=== PATIENT | female | born 1980 | race Caucasian/White ===

== ENCOUNTER 2019-01-16 19:09 | Emergency (ER) | payer BC ==
[2019-01-16 19:17] VITALS: TEMP 98.3
[2019-01-16] MEDS ORDERED: SODIUM CHLORIDE 0.9% 1,000 ML IV STA ×2 (19:41→20:29)
[2019-01-16 20:14] LABS: Basophils # (A) 0.1 k/uL (0-0.2); Basophils % (A) 1 %; Eosinophils # (A) 0.3 k/uL (0-0.7); Eosinophils % (A) 2 %; HCT 47.8 % (34.0-46.0); HGB 15.3 gm/dL (11.4-16.0); Lymphocytes # (A) 2.3 k/uL (1.0-4.8); Lymphocytes % (A) 16 %; MCH 29.2 pg (25.0-35.0); MCHC 32.1 g/dL (31.0-37.0); Mean Platelet Volume 6.8; Monocytes # (A) 0.4 k/uL (0-1.0); Monocytes % (A) 3 %; Neutrophils # (A) 10.6 k/uL (1.3-7.7); Neutrophils % (A) 77 %; Platelet Count 395 k/uL (150-450); RBC 5.25 m/uL (3.80-5.40); WBC 13.8 k/uL (3.8-10.6)
[2019-01-16 20:23] LABS: ALT 28 U/L (9-52); AST 36 U/L (14-36); Albumin 5.2 g/dL (3.5-5.0); Alcohol <10 mg/dL; Alkaline Phosphatase 74 U/L (38-126); Amylase 54 U/L (30-110); Anion Gap 15 mmol/L; Blood Urea Nitrogen 16 mg/dL (7-17); Calcium 10.5 mg/dL (8.4-10.2); Carbon Dioxide 20 mmol/L (22-30); Chloride 104 mmol/L (98-107); Creatine Kinase 59 U/L (30-135); Glucose 119 mg/dL (74-99); Lipase 71 U/L (23-300); Magnesium 1.7 mg/dL (1.6-2.3); Sodium 139 mmol/L (137-145); Total Bilirubin 0.7 mg/dL (0.2-1.3); Total Protein 8.4 g/dL (6.3-8.2)
[2019-01-16 20:27] LABS: Potassium 3.9 mmol/L (3.5-5.1)
--- NOTE | 2019-01-16 20:29 | ED ---
Neuro HPI - General Chief Complaint: Neuro Symptoms/Deficit Stated Complaint: face & hand tingling/dizziness Time Seen by Provider: 01/16/19 19:33 Source: patient, RN notes reviewed Mode of arrival: ambulatory Limitations: no limitations - History of Present Illness Is the patient presenting with stroke symptoms?: No Initial Comments: This is a 38-year-old female with no known history of neurological disorder who does have a family history with her mother with some autoimmune disease who states she had the onset 3 days ago of some right facial numbness around her left. He states he also had some numbness to the fourth and fifth fingers of both hands also with some tingling. She had some dizziness also with this. No focal weakness however to arms or legs no blurry vision no headache no dizziness nausea vomiting or other symptoms. She states she had episodes like this about a year ago she cut out sugar and it seemed to resolve. She does admit to drinking 25 and 7 days week 6-8 drinks a day. Last was so. She is currently on. She denies any trauma a known umbilical imbalances or any history of any diabetes or other symptoms or medical issues. - Related Data Home Medications: Home Medications Medication Instructions Recorded Confirmed Fluticasone Nasal [place] [Flonase 1 spr EA NOSTRIL DAILY PRN 01/16/19 01/16/19 Nasal [place]] Allergies/Adverse Reactions: Allergies Allergy/AdvReac Type Severity Reaction Status Date / Time No Known Allergies Allergy Verified 01/16/19 20:28 Review of Systems ROS Statement: Those systems with pertinent positive or pertinent negative responses have been documented in the HPI. ROS Other: All systems not noted in ROS Statement are negative. General Exam - General Exam Comments Initial Comments: This is a well-developed well-nourished awake alert oriented 3 female Limitations: no limitations General appearance: alert, in no apparent distress Head exam: Present: atraumatic, normocephalic, normal inspection Eye exam: Present: normal appearance, PERRL, EOMI. Absent: scleral icterus, conjunctival injection, periorbital swelling ENT exam: Present: normal exam, mucous membranes moist Neck exam: Present: normal inspection, full ROM, other (No stridor JVD or bruits). Absent: tenderness, meningismus, lymphadenopathy Respiratory exam: Present: normal lung sounds bilaterally. Absent: respiratory distress, wheezes, rales, rhonchi, stridor Cardiovascular Exam: Present: normal rhythm, tachycardia. Absent: systolic murmur, diastolic murmur, rubs, gallop, clicks GI/Abdominal exam: Present: soft, normal bowel sounds. Absent: distended, tenderness, guarding, rebound, rigid Extremities exam: Present: normal inspection, full ROM, normal capillary refill. Absent: tenderness, pedal edema, joint swelling, calf tenderness Back exam: Present: normal inspection Neurological exam: Present: alert, oriented X3, CN II-XII intact Psychiatric exam: Present: normal affect, normal mood Skin exam: Present: warm, dry, intact, normal color. Absent: rash Stroke MDM - Lab Data Result diagrams: 01/16/19 20:00 01/16/19 20:00 Lab Results 01/16/19 01/16/19 01/16/19 Range/Units 20:00 20:00 20:00 WBC 13.8 H (3.8-10.6) k/uL RBC 5.25 (3.80-5.40) m/uL Hgb 15.3 (11.4-16.0) gm/dL Hct 47.8 H (34.0-46.0) % MCV 91.0 (80.0-100.0) fL MCH 29.2 (25.0-35.0) pg MCHC 32.1 (31.0-37.0) g/dL RDW 13.0 (11.5-15.5) % Plt Count 395 (150-450) k/uL Neutrophils % 77 % Lymphocytes % 16 % Monocytes % 3 % Eosinophils % 2 % Basophils % 1 % Neutrophils # 10.6 H (1.3-7.7) k/uL Lymphocytes # 2.3 (1.0-4.8) k/uL Monocytes # 0.4 (0-1.0) k/uL Eosinophils # 0.3 (0-0.7) k/uL Basophils # 0.1 (0-0.2) k/uL PT 9.8 (9.0-12.0) sec INR 0.9 (<1.2) APTT 22.9 (22.0-30.0) sec Sodium 139 (137-145) mmol/L Potassium 3.9 (3.5-5.1) mmol/L Chloride 104 (98-107) mmol/L Carbon Dioxide 20 L (22-30) mmol/L Anion Gap 15 mmol/L BUN 16 (7-17) mg/dL Creatinine 0.66 (0.52-1.04) mg/dL Est GFR (CKD-EPI)AfAm >90 (>60 ml/min/1.73 sqM) Est GFR (CKD-EPI)NonAf >90 (>60 ml/min/1.73 sqM) Glucose 119 H (74-99) mg/dL Calcium 10.5 H (8.4-10.2) mg/dL Magnesium 1.7 (1.6-2.3) mg/dL Total Bilirubin 0.7 (0.2-1.3) mg/dL AST 36 (14-36) U/L ALT 28 (9-52) U/L Alkaline Phosphatase 74 (38-126) U/L Creatine Kinase 59 (30-135) U/L Troponin I (0.000-0.034) ng/mL Total Protein 8.4 H (6.3-8.2) g/dL Albumin 5.2 H (3.5-5.0) g/dL Amylase 54 (30-110) U/L Lipase 71 (23-300) U/L TSH 3.530 (0.465-4.680) mIU/L Serum Alcohol <10 mg/dL 01/16/19 Range/Units 20:00 WBC (3.8-10.6) k/uL RBC (3.80-5.40) m/uL Hgb (11.4-16.0) gm/dL Hct (34.0-46.0) % MCV (80.0-100.0) fL MCH (25.0-35.0) pg MCHC (31.0-37.0) g/dL RDW (11.5-15.5) % Plt Count (150-450) k/uL Neutrophils % % Lymphocytes % % Monocytes % % Eosinophils % % Basophils % % Neutrophils # (1.3-7.7) k/uL Lymphocytes # (1.0-4.8) k/uL Monocytes # (0-1.0) k/uL Eosinophils # (0-0.7) k/uL Basophils # (0-0.2) k/uL PT (9.0-12.0) sec INR (<1.2) APTT (22.0-30.0) sec Sodium (137-145) mmol/L Potassium (3.5-5.1) mmol/L Chloride (98-107) mmol/L Carbon Dioxide (22-30) mmol/L Anion Gap mmol/L BUN (7-17) mg/dL Creatinine (0.52-1.04) mg/dL Est GFR (CKD-EPI)AfAm (>60 ml/min/1.73 sqM) Est GFR (CKD-EPI)NonAf (>60 ml/min/1.73 sqM) Glucose (74-99) mg/dL Calcium (8.4-10.2) mg/dL Magnesium (1.6-2.3) mg/dL Total Bilirubin (0.2-1.3) mg/dL AST (14-36) U/L ALT (9-52) U/L Alkaline Phosphatase (38-126) U/L Creatine Kinase (30-135) U/L Troponin I <0.012 (0.000-0.034) ng/mL Total Protein (6.3-8.2) g/dL Albumin (3.5-5.0) g/dL Amylase (30-110) U/L Lipase (23-300) U/L TSH (0.465-4.680) mIU/L Serum Alcohol mg/dL - NIH Stroke Scale 1a. Level of Consciousness: (0) alert 1b. LOC Questions: (0) answers correctly 1c. LOC Commands: (0) performs tasks correctly 2. Best Gaze: (0) normal 3. Visual: (0) no visual loss 4. Facial Palsy: (0) normal symmetrical movement 5a. Motor Arm Left: (0) no drift 5b. Motor Arm Right: (0) no drift 6a. Motor Leg Left: (0) no drift 6b. Motor Leg Right: (0) no drift 7. Limb Ataxia: (0) absent 8. Sensory: (0) normal 9. Best Language: (0) no aphasia 10. Dysarthria: (0) normal 11. Extinction/Inattention: (0) no abnormality - Medical Decision Making I did review the imaging and reports no acute findings. The patient will be discharged I did recommend stopping alcohol consumption she does have borderline low magnesium potassium levels we did discuss foods and supplements for this. She is going to follow-up with her doctor and return when necessary - EKG Data -: EKG Interpreted by Me EKG shows normal: sinus rhythm Rate: normal (EKG shows sinus tachycardia rate of 112. Interval 142 QRS duration 76 QT since QTC 3:30/[address] configuration) Past Medical History Past Medical History: No Reported History History of Any Multi-Drug Resistant Organisms: None Reported Past Surgical History: No Surgical Hx Reported Past Psychological History: No Psychological Hx Reported Smoking Status: Never smoker Past Alcohol Use History: Abuse, Daily, Heavy Past Drug Use History: None Reported Course Vital Signs 01/16/19 19:13 Temperature 98.3 F Pulse Rate 121 H Respiratory 20 Rate Blood Pressure 196/108 O2 Sat by Pulse 99 Oximetry Disposition Clinical Impression: Paresthesia Disposition: HOME SELF-CARE Condition: Good Instructions (If sedation given, give patient instructions): Paresthesia (ED), Abuse of Alcohol (ED) Is patient prescribed a controlled substance at d/c from ED?: No Referrals: None,Stated [Primary Care Provider] - 1-2 days
[2019-01-16 20:36] LABS: INR 0.9 (<1.2); Partial Thromboplastin Time 22.9 sec (22.0-30.0); Prothrombin Time 9.8 sec (9.0-12.0)
--- NOTE | 2019-01-16 20:47 | CT ---
EXAMINATION TYPE: CT brain wo con DATE OF EXAM: 01/16/2019 COMPARISON: None HISTORY: 38-year-old female neurologic deficits, numbness and tingling in face TECHNIQUE: Examination was done in axial plane without intravenous contrast. Coronal and sagittal r econstructions performed. CT DLP: 1082.4 mGycm Automated exposure control for dose reduction was used. FINDINGS: There is no evidence of acute intracranial hemorrhage, acute ischemic changes, mass, mass-effect, or extra-axial fluid collection. There is no effacement of cerebral sulci or basal subarachnoid cister ns. There is no hydrocephalus. There is no midline shift. Gaspar-white matter distinction is preserv ed. Normal variant persistent CSP. Paranasal sinuses and mastoid air cells well pneumatized. Orbits and globes are intact. There is an 8 mm scalp nodule posteriorly on the right. IMPRESSION: No acute intracranial abnormality seen. 8 mm posterior scalp nodule on the right. Correlate with phys ical exam findings, possible sebaceous cyst.
--- NOTE | 2019-01-16 20:48 | XR ---
EXAMINATION TYPE: XR chest 2V DATE OF EXAM: 01/16/2019 COMPARISON: None HISTORY: 38 year-old female altered mental status, dizziness, tingling in fingers TECHNIQUE: PA and lateral views FINDINGS: The cardiomediastinal silhouette, aorta, and pulmonary vasculature are within normal limits. Mild juana tral peribronchial cuffing. Otherwise, lungs and pleural spaces are clear. IMPRESSION: Some central periportal cuffing could reflect bronchitis or asthma. Otherwise, no acute cardiopulmona ry process.
[2019-01-16 22:35] VITALS: BP 130/86; PULSE 80; RESP 19
== END 2019-01-16 22:50 | disposition home or self-care (01) ==
LOC: EC 19:09
DX: R20.2 Paresthesia of skin (principal); R42 Dizziness and giddiness; R20.0 Anesthesia of skin
CPT/HCPCS: 36415; 70450; 71046; 80053; 80320; 82150; 82550; 83690; 83735; 84443; 84484; 85025; 85610; 85730; 93005; 96360; 96361; 99284

== ENCOUNTER 2021-07-05 12:26 | Inpatient (IN) | payer BC ==
[2021-07-05] MEDS ORDERED: SODIUM CHLORIDE 0.9% 1,000 ML IV STA (12:48)
[2021-07-05] MEDS ORDERED: LORazepam 2 MG/ML INJ IV STA (12:49)
--- NOTE | 2021-07-05 13:25 | ED ---
General Adult HPI - General Chief complaint: Anxiety Stated complaint: panic attack Time Seen by Provider: 07/05/21 12:44 Source: patient, RN notes reviewed, old records reviewed Mode of arrival: ambulatory Limitations: no limitations - History of Present Illness Initial comments: 41 yo female who had presented for evaluation of anxiety, palpitations. Patient's symptoms have progressed over the past several days. She denies associated chest pain or dyspnea. She's had some nausea. She's felt quite sweaty. She states she typically drinks about 12 beers daily but states she has been trying to cut back. She also states that she is prescribed Lexapro and missed 2 doses of Lexapro and thought that this may be contributing to her anxiety. - Related Data Home Medications Medication Instructions Recorded Confirmed Escitalopram [Lexapro] 10 mg PO DAILY 07/05/21 07/05/21 Multivitamins, Thera [Multivitamin 1 tab PO DAILY 07/05/21 07/05/21 (formulary)] Allergies Allergy/AdvReac Type Severity Reaction Status Date / Time No Known Allergies Allergy Verified 07/05/21 13:42 Review of Systems ROS Statement: Those systems with pertinent positive or pertinent negative responses have been documented in the HPI. ROS Other: All systems not noted in ROS Statement are negative. Past Medical History Past Medical History: No Reported History History of Any Multi-Drug Resistant Organisms: None Reported Past Surgical History: No Surgical Hx Reported Past Psychological History: No Psychological Hx Reported Smoking Status: Never smoker Past Alcohol Use History: Abuse, Daily, Heavy Past Drug Use History: None Reported General Exam Limitations: no limitations General appearance: alert, in no apparent distress Head exam: Present: atraumatic, normocephalic Eye exam: Present: normal appearance, PERRL ENT exam: Present: mucous membranes dry Neck exam: Present: normal inspection. Absent: tenderness, meningismus Respiratory exam: Present: normal lung sounds bilaterally. Absent: respiratory distress, wheezes Cardiovascular Exam: Present: normal rhythm, tachycardia GI/Abdominal exam: Present: soft. Absent: distended, tenderness, guarding Extremities exam: Present: normal inspection, normal capillary refill. Absent: pedal edema Neurological exam: Present: alert, oriented X3, CN II-XII intact. Absent: motor sensory deficit Psychiatric exam: Present: anxious Skin exam: Present: intact, diaphoretic Course Vital Signs 07/05/21 12:36 Temperature 100.3 F H Pulse Rate 138 H Respiratory 22 Rate Blood Pressure 176/120 O2 Sat by Pulse 95 Oximetry EKG Findings - EKG Comments: EKG Findings:: EKG: Sinus tachycardia, rate of 125, P NV interval 140, QRS duration 76, QTC [address] segment elevation Medical Decision Making - Medical Decision Making 41-year-old female presenting with anxiety, tachycardia, hypertension. There is suspicion for alcohol withdrawal in this patient. She's given IV fluids and benzodiazepines with some improvement in symptoms. She has a mild leukocytosis, she is acidotic with an anion gap lactic acid of 4.1. She'll be continued on IV hydration, she will be given Ativan according to protocol. She will be admitted to [facility] emergency department physicians who have accepted the admission. - Lab Data Result diagrams: 07/05/21 13:26 07/05/21 13:26 Lab Results 07/05/21 07/05/21 07/05/21 Range/Units 13:26 13:26 13:26 WBC 11.6 H (3.8-10.6) k/uL RBC 5.09 (3.80-5.40) m/uL Hgb 15.7 (11.4-16.0) gm/dL Hct 46.3 H (34.0-46.0) % MCV 90.8 (80.0-100.0) fL MCH 30.8 (25.0-35.0) pg MCHC 33.9 (31.0-37.0) g/dL RDW 12.7 (11.5-15.5) % Plt Count 245 (150-450) k/uL MPV 7.3 Neutrophils % 79 % Lymphocytes % 14 % Monocytes % 3 % Eosinophils % 3 % Basophils % 1 % Neutrophils # 9.2 H (1.3-7.7) k/uL Lymphocytes # 1.7 (1.0-4.8) k/uL Monocytes # 0.3 (0-1.0) k/uL Eosinophils # 0.3 (0-0.7) k/uL Basophils # 0.1 (0-0.2) k/uL PT 10.8 (9.0-12.0) sec INR 1.0 (<1.2) APTT 23.1 (22.0-30.0) sec D-Dimer 0.28 (<0.60) mg/L FEU Sodium (137-145) mmol/L Potassium (3.5-5.1) mmol/L Chloride (98-107) mmol/L Carbon Dioxide (22-30) mmol/L Anion Gap mmol/L BUN (7-17) mg/dL Creatinine (0.52-1.04) mg/dL Est GFR (CKD-EPI)AfAm (>60 ml/min/1.73 sqM) Est GFR (CKD-EPI)NonAf (>60 ml/min/1.73 sqM) Glucose (74-99) mg/dL Plasma Lactic Acid Javy (0.7-2.0) mmol/L Calcium (8.4-10.2) mg/dL Magnesium (1.6-2.3) mg/dL Total Bilirubin (0.2-1.3) mg/dL AST (14-36) U/L ALT (4-34) U/L Alkaline Phosphatase (38-126) U/L Troponin I (0.000-0.034) ng/mL Total Protein (6.3-8.2) g/dL Albumin (3.5-5.0) g/dL TSH (0.465-4.680) mIU/L Urine Color Colorless Urine Appearance Clear (Clear) Urine pH 5.0 (5.0-8.0) Ur Specific [place] 1.005 (1.001-1.035) Urine Protein 1+ H (Negative) Urine Glucose (UA) Negative (Negative) Urine Ketones Negative (Negative) Urine Blood Negative (Negative) Urine Nitrite Negative (Negative) Urine Bilirubin Negative (Negative) Urine Urobilinogen <2.0 (<2.0) mg/dL Ur Leukocyte Esterase Negative (Negative) Urine RBC <1 (0-5) /hpf Ur Squamous Epith Cells <1 (0-4) /hpf Urine Bacteria Occasional H (None) /hpf Urine Mucus Rare H (None) /hpf Urine HCG, Qual (Not Detectd) Urine Opiates Screen (NotDetected) Ur Oxycodone Screen (NotDetected) Urine Methadone Screen (NotDetected) Ur Propoxyphene Screen (NotDetected) Ur Barbiturates Screen (NotDetected) U Tricyclic Antidepress (NotDetected) Ur Phencyclidine Scrn (NotDetected) Ur Amphetamines Screen (NotDetected) U Methamphetamines Scrn (NotDetected) U Benzodiazepines Scrn (NotDetected) Urine Cocaine Screen (NotDetected) U Marijuana (THC) Screen (NotDetected) Serum Alcohol mg/dL Coronavirus (PCR) (Not Detectd) 07/05/21 07/05/21 07/05/21 Range/Units 13:26 13:26 13:26 WBC (3.8-10.6) k/uL RBC (3.80-5.40) m/uL Hgb (11.4-16.0) gm/dL Hct (34.0-46.0) % MCV (80.0-100.0) fL MCH (25.0-35.0) pg MCHC (31.0-37.0) g/dL RDW (11.5-15.5) % Plt Count (150-450) k/uL MPV Neutrophils % % Lymphocytes % % Monocytes % % Eosinophils % % Basophils % % Neutrophils # (1.3-7.7) k/uL Lymphocytes # (1.0-4.8) k/uL Monocytes # (0-1.0) k/uL Eosinophils # (0-0.7) k/uL Basophils # (0-0.2) k/uL PT (9.0-12.0) sec INR (<1.2) APTT (22.0-30.0) sec D-Dimer (<0.60) mg/L FEU Sodium 134 L (137-145) mmol/L Potassium 3.9 (3.5-5.1) mmol/L Chloride 104 (98-107) mmol/L Carbon Dioxide 12 L (22-30) mmol/L Anion Gap 18 mmol/L BUN 9 (7-17) mg/dL Creatinine 0.59 (0.52-1.04) mg/dL Est GFR (CKD-EPI)AfAm >90 (>60 ml/min/1.73 sqM) Est GFR (CKD-EPI)NonAf >90 (>60 ml/min/1.73 sqM) Glucose 129 H (74-99) mg/dL Plasma Lactic Acid Javy (0.7-2.0) mmol/L Calcium 9.9 (8.4-10.2) mg/dL Magnesium 1.5 L (1.6-2.3) mg/dL Total Bilirubin 0.6 (0.2-1.3) mg/dL AST 64 H (14-36) U/L ALT 36 H (4-34) U/L Alkaline Phosphatase 73 (38-126) U/L Troponin I <0.012 (0.000-0.034) ng/mL Total Protein 8.2 (6.3-8.2) g/dL Albumin 4.9 (3.5-5.0) g/dL TSH 1.460 (0.465-4.680) mIU/L Urine Color Urine Appearance (Clear) Urine pH (5.0-8.0) Ur Specific [place] (1.001-1.035) Urine Protein (Negative) Urine Glucose (UA) (Negative) Urine Ketones (Negative) Urine Blood (Negative) Urine Nitrite (Negative) Urine Bilirubin (Negative) Urine Urobilinogen (<2.0) mg/dL Ur Leukocyte Esterase (Negative) Urine RBC (0-5) /hpf Ur Squamous Epith Cells (0-4) /hpf Urine Bacteria (None) /hpf Urine Mucus (None) /hpf Urine HCG, Qual Not Detected (Not Detectd) Urine Opiates Screen (NotDetected) Ur Oxycodone Screen (NotDetected) Urine Methadone Screen (NotDetected) Ur Propoxyphene Screen (NotDetected) Ur Barbiturates Screen (NotDetected) U Tricyclic Antidepress (NotDetected) Ur Phencyclidine Scrn (NotDetected) Ur Amphetamines Screen (NotDetected) U Methamphetamines Scrn (NotDetected) U Benzodiazepines Scrn (NotDetected) Urine Cocaine Screen (NotDetected) U Marijuana (THC) Screen (NotDetected) Serum Alcohol <10 mg/dL Coronavirus (PCR) (Not Detectd) 07/05/21 07/05/21 07/05/21 Range/Units 13:26 13:26 13:26 WBC (3.8-10.6) k/uL RBC (3.80-5.40) m/uL Hgb (11.4-16.0) gm/dL Hct (34.0-46.0) % MCV (80.0-100.0) fL MCH (25.0-35.0) pg MCHC (31.0-37.0) g/dL RDW (11.5-15.5) % Plt Count (150-450) k/uL MPV Neutrophils % % Lymphocytes % % Monocytes % % Eosinophils % % Basophils % % Neutrophils # (1.3-7.7) k/uL Lymphocytes # (1.0-4.8) k/uL Monocytes # (0-1.0) k/uL Eosinophils # (0-0.7) k/uL Basophils # (0-0.2) k/uL PT (9.0-12.0) sec INR (<1.2) APTT (22.0-30.0) sec D-Dimer (<0.60) mg/L FEU Sodium (137-145) mmol/L Potassium (3.5-5.1) mmol/L Chloride (98-107) mmol/L Carbon Dioxide (22-30) mmol/L Anion Gap mmol/L BUN (7-17) mg/dL Creatinine (0.52-1.04) mg/dL Est GFR (CKD-EPI)AfAm (>60 ml/min/1.73 sqM) Est GFR (CKD-EPI)NonAf (>60 ml/min/1.73 sqM) Glucose (74-99) mg/dL Plasma Lactic Acid Javy 4.1 H* (0.7-2.0) mmol/L Calcium (8.4-10.2) mg/dL Magnesium (1.6-2.3) mg/dL Total Bilirubin (0.2-1.3) mg/dL AST (14-36) U/L ALT (4-34) U/L Alkaline Phosphatase (38-126) U/L Troponin I (0.000-0.034) ng/mL Total Protein (6.3-8.2) g/dL Albumin (3.5-5.0) g/dL TSH (0.465-4.680) mIU/L Urine Color Urine Appearance (Clear) Urine pH (5.0-8.0) Ur Specific [place] (1.001-1.035) Urine Protein (Negative) Urine Glucose (UA) (Negative) Urine Ketones (Negative) Urine Blood (Negative) Urine Nitrite (Negative) Urine Bilirubin (Negative) Urine Urobilinogen (<2.0) mg/dL Ur Leukocyte Esterase (Negative) Urine RBC (0-5) /hpf Ur Squamous Epith Cells (0-4) /hpf Urine Bacteria (None) /hpf Urine Mucus (None) /hpf Urine HCG, Qual (Not Detectd) Urine Opiates Screen Not Detected (NotDetected) Ur Oxycodone Screen Not Detected (NotDetected) Urine Methadone Screen Not Detected (NotDetected) Ur Propoxyphene Screen Not Detected (NotDetected) Ur Barbiturates Screen Not Detected (NotDetected) U Tricyclic Antidepress Not Detected (NotDetected) Ur Phencyclidine Scrn Not Detected (NotDetected) Ur Amphetamines Screen Not Detected (NotDetected) U Methamphetamines Scrn Not Detected (NotDetected) U Benzodiazepines Scrn Not Detected (NotDetected) Urine Cocaine Screen Not Detected (NotDetected) U Marijuana (THC) Screen Not Detected (NotDetected) Serum Alcohol mg/dL Coronavirus (PCR) Not Detected (Not Detectd) Critical Care Time Critical Care Time: Yes Total Critical Care Time: 35 Disposition Clinical Impression: Alcohol withdrawal, Lactic acid acidosis Disposition: HOME SELF-CARE Condition: Stable Instructions (If sedation given, give patient instructions): Generalized Anxiety Disorder (ED) Is patient prescribed a controlled substance at d/c from ED?: No Referrals: None,Stated [Primary Care Provider] - 1-2 days Decision to Admit Reason: Admit from EC Decision Date: 07/05/21 Decision Time: 16:08
[2021-07-05 13:38] LABS: Basophils # (A) 0.1 k/uL (0-0.2); Basophils % (A) 1 %; Eosinophils # (A) 0.3 k/uL (0-0.7); Eosinophils % (A) 3 %; HCT 46.3 % (34.0-46.0); HGB 15.7 gm/dL (11.4-16.0); Lymphocytes # (A) 1.7 k/uL (1.0-4.8); Lymphocytes % (A) 14 %; MCH 30.8 pg (25.0-35.0); MCHC 33.9 g/dL (31.0-37.0); MCV 90.8 fL (80.0-100.0); Mean Platelet Volume 7.3; Monocytes # (A) 0.3 k/uL (0-1.0); Monocytes % (A) 3 %; Neutrophils # (A) 9.2 k/uL (1.3-7.7); Neutrophils % (A) 79 %; Platelet Count 245 k/uL (150-450); RBC 5.09 m/uL (3.80-5.40); RDW 12.7 % (11.5-15.5); WBC 11.6 k/uL (3.8-10.6)
[2021-07-05 13:53] LABS: Partial Thromboplastin Time 23.1 sec (22.0-30.0); Prothrombin Time 10.8 sec (9.0-12.0)
[2021-07-05 13:58] LABS: Amphetamine Screen,Urine Not Detected (NotDetected); Barbiturate Screen,Urine Not Detected (NotDetected); Benzodiazepines Screen,Urine Not Detected (NotDetected); Cocaine Screen,Urine Not Detected (NotDetected); Methadone Screen, Urine Not Detected (NotDetected); Opiate Screen,Urine Not Detected (NotDetected); Oxycodone Screen, Urine Not Detected (NotDetected); Phencyclidine Screen,Urine Not Detected (NotDetected); Tricyclic Antidepressant,Urine Not Detected (NotDetected); Urn Cannabinoid Scrn Not Detected (NotDetected)
[2021-07-05 14:05] LABS: Appearance,Urine Clear (Clear); Bacteria,Urine Occasional /hpf; Bilirubin,Urine Negative (Negative); Blood,Urine Negative (Negative); Color,Urine Colorless; Glucose,Urine (UA) Negative (Negative); Ketones,Urine Negative (Negative); Leukocyte Esterase,Urine Negative (Negative); Mucus,Urine Rare /hpf; Nitrite,Urine Negative (Negative); Protein,Urine 1+ (Negative); RBC,Urine <1 /hpf (0-5); Specific Gravity,Urine 1.005 (1.001-1.035); Squamous Epithelial Cell,Urine <1 /hpf (0-4); Urobilinogen,Urine <2.0 mg/dL (<2.0)
[2021-07-05 14:09] LABS: ALT 36 U/L (4-34); AST 64 U/L (14-36); African American GFR (CKD) >90 (>60 ml/min/1.73 sqM); Albumin 4.9 g/dL (3.5-5.0); Alcohol <10 mg/dL; Alkaline Phosphatase 73 U/L (38-126); Anion Gap 18 mmol/L; Blood Urea Nitrogen 9 mg/dL (7-17); Calcium 9.9 mg/dL (8.4-10.2); Carbon Dioxide 12 mmol/L (22-30); Chloride 104 mmol/L (98-107); Glucose 129 mg/dL (74-99); Magnesium 1.5 mg/dL (1.6-2.3); Non-African American GFR(CKD) >90 (>60 ml/min/1.73 sqM); Potassium 3.9 mmol/L (3.5-5.1); Sodium 134 mmol/L (137-145); Total Bilirubin 0.6 mg/dL (0.2-1.3); Total Protein 8.2 g/dL (6.3-8.2)
[2021-07-05] MEDS ORDERED: MAGNESIUM SULFATE-D5W PMX 1 GM in DEXTROSE/WATER 1 100ML.BAG IVPB ONE (14:27)
[2021-07-05] MEDS ORDERED: SODIUM CHLORIDE 0.9% 500 ML 500 ML IV ONE (14:27)
[2021-07-05] MEDS ORDERED: DEXTROSE 5%-0.45% NACL 1,000 ML IV ONE (15:40)
[2021-07-05] MEDS ORDERED: THIAMINE 100 MG/ML 2 ML VIAL IM STA (15:46)
[2021-07-05] MEDS ORDERED: LORazepam 2 MG/ML INJ IV PRN ×2 (15:46)
--- NOTE | 2021-07-05 15:55 | XR ---
EXAMINATION TYPE: XR chest 1V portable DATE OF EXAM: 07/05/2021 COMPARISON: Chest x-ray of January 16, 2019 HISTORY: Dysrhythmia. TECHNIQUE: Single frontal view of the chest is obtained. FINDINGS: There is no suspicious new focal air space opacity, pleural effusion, or pneumothorax seen . The cardiac silhouette size is within normal limits. Underlying scoliotic curvature and/or positio suhail. Overlying EKG leads. IMPRESSION: No acute process.
--- NOTE | 2021-07-05 15:58 | P.HPIM ---
History of Present Illness H&P Date: 07/05/21 This is a 41-year-old female with past medical history significant for underlying anxiety and alcohol abuse and presented to the emergency room with palpitation and heart pounding. Patient said that she usually drinks 10-12 beers per day and she woke up this morning feeling her heart racing. Her last year drink was last night. She thought that she may be having some withdrawal and had another beer this morning and then decided to come to the emergency room. Patient is aware of how bad his or drinking habits and is trying to quit. She was also having anxiety attack this morning. She presented to the ER and was found to be tachycardic with a heart rate of 140. She clearly is having evidence of withdrawal with impending DTs. She was given 2 L of fluid in the ER. She will be admitted for further management. Review of Systems Review of system: 14 points review of systems were obtained and were negative except to what were mentioned in the HPI. Past Medical History Past Medical History: No Reported History History of Any Multi-Drug Resistant Organisms: None Reported Past Surgical History: No Surgical Hx Reported Past Psychological History: No Psychological Hx Reported Smoking Status: Never smoker Past Alcohol Use History: Abuse, Daily, Heavy Past Drug Use History: None Reported Medications and Allergies Home Medications Medication Instructions Recorded Confirmed Type Escitalopram [Lexapro] 10 mg PO DAILY 07/05/21 07/05/21 History Multivitamins, Thera [Multivitamin 1 tab PO DAILY 07/05/21 07/05/21 History (formulary)] Allergies Allergy/AdvReac Type Severity Reaction Status Date / Time No Known Allergies Allergy Verified 07/05/21 13:42 Physical Exam Vitals: Vital Signs Temp Pulse Resp BP Pulse Ox 07/05/21 12:36 100.3 F H 138 H 22 176/120 95 Intake and Output 07/05/21 07/05/21 07/05/21 06:59 14:59 22:59 Other: Weight 90.718 kg General: The patient is awake and alert, in no distress Eye: there is normal conjunctiva bilaterally. Neck: The neck is supple, there is no JVD. Cardiovascular: Normal S1-S2, no S3-S4, no murmurs. Respiratory: Lungs clear to auscultation bilaterally Gastrointestinal: Abdomen is soft, nontender Musculoskeletal: There is no pedal edema. Neurological:. Speech is normal. Skin: Skin is warm and dry Results CBC & Chem 7: 07/05/21 13:26 07/05/21 13:26 Labs: Abnormal Lab Results - Last 24 Hours (Table) 07/05/21 07/05/21 07/05/21 Range/Units 13:26 13:26 13:26 WBC 11.6 H (3.8-10.6) k/uL Hct 46.3 H (34.0-46.0) % Neutrophils # 9.2 H (1.3-7.7) k/uL Sodium 134 L (137-145) mmol/L Carbon Dioxide 12 L (22-30) mmol/L Glucose 129 H (74-99) mg/dL Plasma Lactic Acid Javy (0.7-2.0) mmol/L Magnesium 1.5 L (1.6-2.3) mg/dL AST 64 H (14-36) U/L ALT 36 H (4-34) U/L Urine Protein 1+ H (Negative) Urine Bacteria Occasional H (None) /hpf Urine Mucus Rare H (None) /hpf 07/05/21 Range/Units 13:26 WBC (3.8-10.6) k/uL Hct (34.0-46.0) % Neutrophils # (1.3-7.7) k/uL Sodium (137-145) mmol/L Carbon Dioxide (22-30) mmol/L Glucose (74-99) mg/dL Plasma Lactic Acid Javy 4.1 H* (0.7-2.0) mmol/L Magnesium (1.6-2.3) mg/dL AST (14-36) U/L ALT (4-34) U/L Urine Protein (Negative) Urine Bacteria (None) /hpf Urine Mucus (None) /hpf Assessment and Plan Assessment: 1. Alcohol withdrawal with impending DTs 2. Heavy alcohol abuse 3. Hypomagnesemia 4. Underlying anxiety disorder Today, I reviewed her medication list and lab work results Patient received 2 L of IV fluid in the ER. Continue normal saline 100 mL per hour Ativan as needed per [facility] protocol. I would also start her on Valium 5 mg 3 times a day Magnesium replaced intravenously in the ER. Start magnesium oxide 400 mg twice daily as well Repeat lab work in the morning Patient was counseled extensively regarding alcohol abuse and social welfare research worker will be consulted to provide her with resources
[2021-07-05] MEDS ORDERED: NALOXONE 0.4 MG/ML 1 ML VIAL IV PRN (16:05)
[2021-07-05] MEDS ORDERED: ACETAMINOPHEN TAB 325 MG TAB PO PRN (16:05)
[2021-07-05] MEDS: THIAMINE 100 MG TAB PO SCH (16:38)
[2021-07-05] MEDS: diazePAM 5 MG TAB PO SCH ×2 (16:38→21:50)
[2021-07-05] MEDS: DEXTROSE 5%-0.9% NACL 1,000 ML IV SCH (17:20)
[2021-07-05] MEDS: LORazepam 2 MG/ML INJ IV PRN (19:15)
[2021-07-05] MEDS: MAGNESIUM OXIDE 400 MG TAB PO SCH (21:50)
[2021-07-06] MEDS: LORazepam 2 MG/ML INJ IV PRN (00:35)
[2021-07-06 02:37] LABS: African American GFR (CKD) >90 (>60 ml/min/1.73 sqM); Anion Gap 8 mmol/L; Blood Urea Nitrogen 7 mg/dL (7-17); Calcium 8.3 mg/dL (8.4-10.2); Carbon Dioxide 18 mmol/L (22-30); Chloride 107 mmol/L (98-107); Glucose 96 mg/dL (74-99); Non-African American GFR(CKD) >90 (>60 ml/min/1.73 sqM); Potassium 3.4 mmol/L (3.5-5.1); Sodium 133 mmol/L (137-145)
[2021-07-06] MEDS: DEXTROSE 5%-0.9% NACL 1,000 ML IV SCH (04:45)
[2021-07-06] MEDS: THIAMINE 100 MG TAB PO SCH ×2 (06:21→17:42)
[2021-07-06] MEDS ORDERED: POTASSIUM CHLORIDE 20 MEQ in WATER FOR INJECTION 1 100ML.BAG IVPB STA (07:28)
[2021-07-06] MEDS ORDERED: PANTOPRAZOLE 40 MG/10 ML VIAL IVP SCH (09:00)
[2021-07-06] MEDS: MAGNESIUM OXIDE 400 MG TAB PO SCH ×2 (09:11→21:18)
[2021-07-06] MEDS: diazePAM 5 MG TAB PO SCH ×2 (09:12→21:18)
--- NOTE | 2021-07-06 09:29 | P.PN ---
Subjective Patient is feeling better today. She was requiring IV Ativan overnight. She is also getting Valium 5 mg scheduled 3 times a day. No evidence of withdrawal symptoms at the time of my evaluation. Objective - Vital Signs Vital signs: Vital Signs Temp 98.8 F 07/06/21 08:00 Pulse 109 H 07/06/21 08:00 Resp 18 07/06/21 08:00 BP 138/92 07/06/21 08:00 Pulse Ox 96 07/06/21 08:00 Intake & Output 07/05/21 07/06/21 07/06/21 18:59 06:59 18:59 Intake Total 710 180 Balance 710 180 Weight 90.718 kg 90.4 kg Intake: Intake, IV Titration 350 Amount Dextrose 5%-0.9% NaCl 1, 350 000 ml @ 100 mls/hr IV . Q10H TYRELL Rx#:[id number] Oral 360 180 Other: # Voids 2 - Exam General: The patient is awake and alert, in no distress Eye: there is normal conjunctiva bilaterally. Neck: The neck is supple, there is no JVD. Cardiovascular: Normal S1-S2, no S3-S4, no murmurs. Respiratory: Lungs clear to auscultation bilaterally Gastrointestinal: Abdomen is soft, nontender Musculoskeletal: There is no pedal edema. Neurological:. Speech is normal. Skin: Skin is warm and dry - Labs CBC & Chem 7: 07/05/21 13:26 07/06/21 02:16 Labs: Abnormal Lab Results - Last 24 Hours (Table) 07/05/21 07/05/21 07/05/21 Range/Units 13:26 13:26 13:26 WBC 11.6 H (3.8-10.6) k/uL Hct 46.3 H (34.0-46.0) % Neutrophils # 9.2 H (1.3-7.7) k/uL Sodium 134 L (137-145) mmol/L Potassium (3.5-5.1) mmol/L Carbon Dioxide 12 L (22-30) mmol/L Glucose 129 H (74-99) mg/dL Plasma Lactic Acid Javy (0.7-2.0) mmol/L Calcium (8.4-10.2) mg/dL Magnesium 1.5 L (1.6-2.3) mg/dL AST 64 H (14-36) U/L ALT 36 H (4-34) U/L Urine Protein 1+ H (Negative) Urine Bacteria Occasional H (None) /hpf Urine Mucus Rare H (None) /hpf 07/05/21 07/05/21 07/05/21 Range/Units 13:26 16:49 19:34 WBC (3.8-10.6) k/uL Hct (34.0-46.0) % Neutrophils # (1.3-7.7) k/uL Sodium (137-145) mmol/L Potassium (3.5-5.1) mmol/L Carbon Dioxide (22-30) mmol/L Glucose (74-99) mg/dL Plasma Lactic Acid Javy 4.1 H* 2.7 H* 2.6 H* (0.7-2.0) mmol/L Calcium (8.4-10.2) mg/dL Magnesium (1.6-2.3) mg/dL AST (14-36) U/L ALT (4-34) U/L Urine Protein (Negative) Urine Bacteria (None) /hpf Urine Mucus (None) /hpf 07/05/21 07/06/21 Range/Units 22:53 02:16 WBC (3.8-10.6) k/uL Hct (34.0-46.0) % Neutrophils # (1.3-7.7) k/uL Sodium 133 L (137-145) mmol/L Potassium 3.4 L (3.5-5.1) mmol/L Carbon Dioxide 18 L (22-30) mmol/L Glucose (74-99) mg/dL Plasma Lactic Acid Javy 2.2 H* (0.7-2.0) mmol/L Calcium 8.3 L (8.4-10.2) mg/dL Magnesium (1.6-2.3) mg/dL AST (14-36) U/L ALT (4-34) U/L Urine Protein (Negative) Urine Bacteria (None) /hpf Urine Mucus (None) /hpf Assessment and Plan Assessment: 1. Alcohol withdrawal with impending DTs 2. Heavy alcohol abuse 3. Hypomagnesemia and hypokalemia 4. Underlying anxiety disorder Today, I reviewed her medication list and lab work results Patient received aggressive IV fluid hydration since admission. Discontinue IV fluids and encourage oral hydration Ativan as needed per [facility] protocol. Decrease Valium dose to 5 mg twice daily Magnesium and potassium replacement Repeat lab work in the morning Patient was counseled extensively regarding alcohol abuse and criminal justice social worker will be consulted to provide her with resources Anticipate discharge home in the morning
[2021-07-06] MEDS ORDERED: POTASSIUM CHLORIDE 20 MEQ in WATER FOR INJECTION 1 100ML.BAG IVPB ONE (11:30)
[2021-07-06] MEDS ORDERED: POTASSIUM CHLORIDE 10 MEQ in WATER FOR INJECTION 1 100ML.BAG IVPB STA (11:37)
[2021-07-07 03:16] VITALS: RESP 18
[2021-07-07] MEDS: THIAMINE 100 MG TAB PO SCH ×2 (06:16→10:43)
[2021-07-07] MEDS ORDERED: PANTOPRAZOLE 40 MG TABLET PO SCH (07:30)
[2021-07-07 09:41] LABS: African American GFR (CKD) >90 (>60 ml/min/1.73 sqM); Anion Gap 12 mmol/L; Blood Urea Nitrogen 4 mg/dL (7-17); Calcium 8.9 mg/dL (8.4-10.2); Carbon Dioxide 16 mmol/L (22-30); Chloride 106 mmol/L (98-107); Glucose 120 mg/dL (74-99); Magnesium 2.2 mg/dL (1.6-2.3); Non-African American GFR(CKD) >90 (>60 ml/min/1.73 sqM); Potassium 3.2 mmol/L (3.5-5.1); Sodium 134 mmol/L (137-145)
[2021-07-07] MEDS ORDERED: POTASSIUM CHLORIDE ER 20 MEQ TAB.ER PO STA (10:18)
--- NOTE | 2021-07-07 10:19 | P.DS ---
Providers Date of admission: 07/05/21 16:05 Expected date of discharge: 07/07/21 Attending physician: Jeramy Loera Primary care physician: Stated None Hospital Course: This is a very pleasant 41-year-old female that presented to the hospital with tachycardia. Patient was evaluated in the ER and admitted to the hospital for further management of her medical problems noted below. 1. Alcohol withdrawal with impending DTs 2. Heavy alcohol abuse 3. Hypomagnesemia and hypokalemia 4. Underlying anxiety disorder She was treated with aggressive IV fluid hydration. Scheduled Valium and as needed Ativan for symptoms of withdrawal. Patient did well throughout her hospital stay. No evidence of withdrawal within the last 24 hours. Electrolytes were replaced. Patient will be discharged home in a stable condition. She was given resources by our medical social consultant for AA. She was counseled extensively regarding alcohol alcohol abuse and appeared to be motivated to stop Physical exam: General: The patient is awake and alert, in no distress Eye: there is normal conjunctiva bilaterally. Neck: The neck is supple, there is no JVD. Cardiovascular: Normal S1-S2, no S3-S4, no murmurs. Respiratory: Lungs clear to auscultation bilaterally Gastrointestinal: Abdomen is soft, nontender Musculoskeletal: There is no pedal edema. Neurological:. Speech is normal. Skin: Skin is warm and dry Patient Condition at Discharge: Stable Plan - Discharge Summary Discharge Rx Participant: No New Discharge Prescriptions: New Thiamine [Vitamin B-1] 100 mg PO BID-W/MEALS #14 tab Folic Acid 1 mg PO DAILY #30 tablet Continue Escitalopram [Lexapro] 10 mg PO DAILY Multivitamins, Thera [Multivitamin (formulary)] 1 tab PO DAILY Discharge Medication List Escitalopram [Lexapro] 10 mg PO DAILY 07/05/21 [History] Multivitamins, Thera [Multivitamin (formulary)] 1 tab PO DAILY 07/05/21 [History] Folic Acid 1 mg PO DAILY #30 tablet 07/07/21 [Rx] Thiamine [Vitamin B-1] 100 mg PO BID-W/MEALS #14 tab 07/07/21 [Rx] Follow up Appointment(s)/Referral(s): None,Stated [Primary Care Provider] - 1-2 days Patient Instructions/Handouts: Generalized Anxiety Disorder (ED) Discharge/Stand Alone Forms: AA Meetings [facility], Who Do I Call?, Community Resources, Outpatient Counseling
[2021-07-07] MEDS: MAGNESIUM OXIDE 400 MG TAB PO SCH (10:21)
[2021-07-07] MEDS: diazePAM 5 MG TAB PO SCH (10:22)
[2021-07-07 10:30] VITALS: BP 156/99; PULSE 82; TEMP 98
== END 2021-07-07 10:53 | disposition home or self-care (01) | DRG 897 ==
LOC: EC 12:26 → 3SCARD 16:05
PROVIDERS: ADMIT Internal Medicine; ATTEND Internal Medicine
DX: F10.239 Alcohol dependence with withdrawal, unspecified (principal); E87.2 Acidosis; Z20.822 Contact with and (suspected) exposure to COVID-19; F41.9 Anxiety disorder, unspecified; E83.42 Hypomagnesemia; I10 Essential (primary) hypertension; D72.829 Elevated white blood cell count, unspecified; E87.6 Hypokalemia; Y90.0 Blood alcohol level of less than 20 mg/100 ml; Z79.899 Other long term (current) drug therapy; Z71.41 Alcohol abuse counseling and surveillance of alcoholic
CPT/HCPCS: 36415; 71045; 80048; 80053; 80306; 80320; 81001; 81025; 83605; 83735; 84443; 84484; 85025; 85379; 85610; 85730; 87635; 93005; 96361; 96365; 96372; 96375; 99285